=== PATIENT | male | born 1940 | race Caucasian/White ===

== ENCOUNTER 2017-09-08 13:38 | Emergency (ER) | payer MEDICAID, OTHER ==
[~2017-09-08] VITALS: Ht 162.6 cm; Wt 57.6 kg
--- NOTE | 2017-09-08 13:54 | NUR ---
PT TO ED ROOM 01. [id number] FROM [facility] [place]: LLQ ABD PAIN S/P EATING MEAL. CHANGED TO GOWN. SIDE RAIS LUP. HOB ELEVATED. CONNECTED TO MONITOR. AWAITING EVALUATION BY ER PROVIDER.
[2017-09-08] MEDS ORDERED: METO25TA3 PO (13:58)
[2017-09-08] MEDS ORDERED: QUET25TA PO (13:58)
[2017-09-08] MEDS ORDERED: MIRT30TA PO (13:58)
[2017-09-08] MEDS ORDERED: LISI-607 PO (13:58)
[2017-09-08] MEDS ORDERED: TAMS-12 PO (13:58)
[2017-09-08] MEDS ORDERED: OMEP20CA10 PO (13:58)
[2017-09-08] MEDS ORDERED: DOCU-141 PO (13:58)
[2017-09-08] MEDS ORDERED: CARB1TAB19 PO (13:58)
[2017-09-08 14:14] LABS: BASOPHILS # (AUTO) 0.1 /CMM (0.0-0.2); BASOPHILS % (AUTO) 0.9 % (0.0-2.0); EOSINOPHILS # (AUTO) 0.2 /CMM (0.0-0.7); EOSINOPHILS % (AUTO) 3.1 % (0.0-6.0); HEMATOCRIT 39 % (39-51); HEMOGLOBIN 13.9 g/dL (13.5-17.5); LYMPHOCYTES # (AUTO) 1.9 /CMM (0.8-4.8); LYMPHOCYTES % (AUTO) 28.4 % (20.0-44.0); MEAN CORPUSCULAR HEMOGLOBIN 31 PG (26.0-33.0); MEAN CORPUSCULAR HGB CONC 36 g/dl (31.0-36.0); MEAN CORPUSCULAR VOLUME 86 fL (80-96); MONOCYTES # (AUTO) 0.5 /CMM (0.1-1.30); MONOCYTES % (AUTO) 6.7 % (2.0-12.0); NEUTROPHILS % (AUTO) 60.9 % (43.0-81.0); PLATELET COUNT (AUTO) 228 /CMM (150-450); RDW COEFFICIENT OF VARIATION 12.1 (11.5-15.0); RED BLOOD CELL COUNT(AUTO) 4.53 MIL/uL (4.5-6.0); WHITE BLOOD COUNT (AUTO) 6.7 K/uL (4.3-11.0)
[2017-09-08 14:24] LABS: CALCIUM, SERUM 8.9 mg/dL (8.5-10.1); CARBON DIOXIDE 27 mmol/L (21-32); CHLORIDE 98 mmol/L (98-107); CREATININE 0.7 mg/dL (0.6-1.3); GLUCOSE 87 mg/dL (74-106); POTASSIUM 4.4 mmol/L (3.5-5.1); SODIUM SERUM 131 mmol/L (136-145); UREA NITROGEN, BLOOD 15 mg/dL (7-18)
[2017-09-08 14:32] LABS: TROPONIN I < 0.017 ng/mL (0.00-0.056)
[2017-09-08 14:40] LABS: ALANINE AMINOTRANSFERASE 20 U/L (12-78); ALBUMIN 3.7 g/dL (3.4-5.0); ALKALINE PHOSPHATASE 100 U/L (46-116); ASPARTATE AMINOTRANSFERASE 24 U/L (15-37); BILIRUBIN,DIRECT 0.1 mg/dL (0.0-0.2); BILIRUBIN,TOTAL 0.4 mg/dL (0.2-1.0); LIPASE 238 U/L (73-393); TOTAL PROTEIN, SERUM 7.6 g/dL (6.4-8.2)
--- NOTE | 2017-09-08 14:52 | NUR ---
URINE SAMPLE COLLECTED FROM PATIENT AND ESEND TO LAB
[2017-09-08 14:58] LABS: APPEARANCE,URINE Clear (CLEAR); BILIRUBIN,URINE Negative (NEGATIVE); BLOOD, URINE Negative Ery/uL (NEGATIVE); COLOR,URINE Yellow (YELLOW); KETONES,URINE Negative (NEGATIVE); LEUKOCYTE ESTERASE ,URINE Negative (NEGATIVE); NITRITE, URINE Negative (NEGATIVE); PH,URINE 6.5 (5.0-8.0); PROTEIN,URINE Negative (NEGATIVE); UGLUCOSE Negative (NEGATIVE); UROBILINOGEN,URINE 0.2 EU/dL (0.2)
[2017-09-08] MEDS ORDERED: LORAZEPAM INJ 2 MG/ML VIAL ONE (15:47)
[2017-09-08] MEDS ORDERED: LORAZEPAM INJ 2 MG/ML VIAL IV ONE (16:00)
--- NOTE | 2017-09-08 16:59 | NUR ---
SEEN AND EVALUATED BY DARIA VIDAL-RN
--- NOTE | 2017-09-08 17:29 | NUR ---
CALLED [facility] FOR TRANSPORT ETA OF 1830 WAS GIVEN. TRIP#[id number]
--- NOTE | 2017-09-08 17:53 | NUR ---
Patient is resting comfortably in bed with eyes closed. Easily aroused. VSS. AWAITING FOR AM[facility]UL[facility].
--- NOTE | 2017-09-08 18:30 | NUR ---
Patient discharged to [facility] in stable condition. Written and verbal after care instructions given. Patient verbalizes understanding of instruction. TRANSFERED VIA AMBULANCE.
--- NOTE | 2017-09-08 18:30 | NUR ---
IV removed. Catheter intact and site benign. Pressure and 4x4 applied to site. No bleeding noted.Patient discharged to home in stable condition. Written and verbal after care instructions given. Patient verbalizes understanding of instruction.
[2017-09-08 18:31] VITALS: BP 115/61
== END 2017-09-08 18:32 | disposition home or self-care (01) ==
LOC: ER 13:45
DX: R10.31 Right lower quadrant pain (principal); R10.11 Right upper quadrant pain; F41.9 Anxiety disorder, unspecified; I10 Essential (primary) hypertension; K21.9 Gastro-esophageal reflux disease without esophagitis; G20 Parkinson's disease; N40.0 Benign prostatic hyperplasia without lower urinary tract symptoms; F20.9 Schizophrenia, unspecified
CPT/HCPCS: 36415; 80048-TC; 80076-TC; 81000-TC; 83690-TC; 84484-TC; 85025-TC; A4606; J2060; Z7610